=== PATIENT | male | born 1960 | race Two or more races ===

== ENCOUNTER 2018-07-03 18:21 | Emergency (ER) | payer OTHER ==
[~2018-07-03] VITALS: Ht 177.8 cm; Wt 94.8 kg
[2018-07-03] MEDS ORDERED: ASPIRIN 325 MG TABLET PO ONE ×2 (19:00→19:30)
[2018-07-03 19:02] LABS: BASOPHILS # (AUTO) 0.1 /CMM (0.0-0.2); BASOPHILS % (AUTO) 0.8 % (0.0-2.0); EOSINOPHILS % (AUTO) 2.5 % (0.0-6.0); HEMATOCRIT 38 % (39-51); LYMPHOCYTES # (AUTO) 2.7 /CMM (0.8-4.8); LYMPHOCYTES % (AUTO) 26.6 % (20.0-44.0); MEAN CORPUSCULAR HGB CONC 34 g/dl (31.0-36.0); MEAN CORPUSCULAR VOLUME 96 fL (80-96); MONOCYTES # (AUTO) 0.8 /CMM (0.1-1.30); NEUTROPHILS # (AUTO) 6.2 /CMM (1.8-8.9); NEUTROPHILS % (AUTO) 62.1 % (43.0-81.0); PLATELET COUNT (AUTO) 216 /CMM (150-450); RED BLOOD CELL COUNT(AUTO) 3.96 MIL/uL (4.5-6.0)
[2018-07-03 19:14] LABS: CALCIUM, SERUM 8.2 mg/dL (8.5-10.1); CARBON DIOXIDE 32 mmol/L (21-32); CHLORIDE 104 mmol/L (98-107); CREATININE 0.7 mg/dL (0.6-1.3); GLUCOSE 93 mg/dL (74-106); POTASSIUM 3.3 mmol/L (3.5-5.1); SODIUM SERUM 141 mmol/L (136-145); UREA NITROGEN, BLOOD 11 mg/dL (7-18)
--- NOTE | 2018-07-03 19:22 | NUR ---
PT BROUGHT IN FOR C/C OF EPIGASTRIC CHEST PAIN RADIATING TO LEFT ARM PIV ESTABLISHED PT ALERT WITH ORIENTATION X 4 NO NOTED SOB N/V
[2018-07-03] MEDS ORDERED: ASPIRIN 325 MG TABLET ONE (19:25)
[2018-07-03 19:26] LABS: B-TYPE NATRIURETIC PEPTIDE 55 PG/ML (0-125)
[2018-07-03] MEDS ORDERED: METOPROLOL SUCCINATE 25 MG TAB.SR.24H PO SCH (19:30)
--- NOTE | 2018-07-03 19:48 | NUR ---
Assumed care of pt. pt lying in bed w/ resp even & unlabored, denies any cp, no sob, w/ nad noted, on continuous cardiac monitoring. Awaiting lab results.
[2018-07-03] MEDS ORDERED: POTASSIUM CHLORIDE 20 MEQ POWDER PACKET PO ONE (20:00)
[2018-07-03] MEDS ORDERED: POTASSIUM CHLORIDE 20 MEQ TAB.PRT.SR PO ONE (20:18)
--- NOTE | 2018-07-03 20:36 | NUR ---
pt ambulatory w/ steady gait to restroom w/ nad noted.
--- NOTE | 2018-07-03 20:49 | NUR ---
pt ambulatory w/ steady gait, resp even & unlabored, denies any cp w/ nad noted. IV removed. Catheter intact and site benign. Pressure and 4x4 applied to site. No bleeding noted.Patient discharged to home in stable condition. Written and verbal after care instructions given. Patient verbalizes understanding of instruction.
[2018-07-03 21:04] VITALS: BP 145/88
== END 2018-07-03 21:05 | disposition home or self-care (01) ==
LOC: EDBD 18:21 → ER 18:29
DX: R00.2 Palpitations (principal); I49.1 Atrial premature depolarization; F10.10 Alcohol abuse, uncomplicated; Y90.9 Presence of alcohol in blood, level not specified
CPT/HCPCS: 36415; 71045; 80048; 83880; 84443; 84484; 85025; 85730; 93005; 99284; A4606; Z7610